=== PATIENT | female | born 1950 | race Caucasian/White ===

== ENCOUNTER → 2023-07-06 | Emergency (ER) | payer OTHER, MEDICARE ==
[~2023-07-06] MED LIST: HYDROCODONE/APAP 10/325 TAB ONE; MORPHINE 4 MG/ML SYR ONE
--- NOTE | 2023-07-06 12:29 | RAD REPORT ---
EXAM DESCRIPTION: RAD - Knee Right 3 View - 07/06/2023 11:56 am CLINICAL HISTORY: Right knee pain status post injury FINDINGS: Mildly to moderately depressed lateral tibial plateau fracture. Osteoporosis Moderate joint effusion No dislocation is seen
--- NOTE | 2023-07-06 14:40 | RAD REPORT ---
EXAM DESCRIPTION: CT - Knee Right Wo Cont - 07/06/2023 1:20 pm CLINICAL HISTORY: Tibial plateau fracture COMPARISON: Knee Right 3 View dated 07/06/2023 TECHNIQUE: Thin cut axial CT imaging of the right knee was performed without IV contrast. Multiplana r reformats were generated and reviewed. All CT scans are performed using dose optimization technique as appropriate and may include automated exposure control or mA/KV adjustment according to patient size. FINDINGS: Mildly depressed fracture involving the peripheral posterior aspect of the lateral tibial plateau, with the depressed fragment measuring 2.5 cm in AP dimension, and 2 cm in transverse dimensi on. Most posteriorly, the fragment is depressed by approximately 4 mm. Mild comminution with small fr agments posteriorly. Mineralization along the medial and lateral menisci, nonspecific. Coarse rounded/ovoid heterogeneous calcifications within the suprapatellar recess. Other areas of mineralization along the gastrocnemius attachment particularly medially. Findings are nonspecific but may relate to sequelae of mineralizat ion in the setting of prior hematoma or synechiae within the joint space, or tears of the muscle shell chments. Possibility of osteochondromatosis within the joint space is considered less likely. Moderate joint effusion. Background up to moderate degenerative changes with marginal spurring. IMPRESSION: Mildly comminuted depressed fracture involving the posterior peripheral aspect of the la teral tibial plateau as described above. Nonspecific soft tissue mineralization as above. Moderate joint effusion.
--- NOTE | 2023-07-06 14:55 | ER ---
Nurse's Notes [facility] Name: Kim Ortiz Age: 72 yrs Sex: Female : 1950 Arrival Date: 07/06/2023 Time: 10:36 Bed 12 Private MD: Diagnosis: Mechanical fall;Tibial plateau fracture Presentation: 07/06 10:53 Chief complaint: Patient states: FALL OFF STEPLADDER LAST PM, TWISTED R KNEE. bp Coronavirus screen: At this time, the client does not indicate any symptoms associated with coronavirus-19. Ebola Screen: No symptoms or risks identified at this time. Initial Sepsis Screen: Does the patient meet any 2 criteria? No. Patient's initial sepsis screen is negative. Does the patient have a suspected source of infection? No. Patient's initial sepsis screen is negative. Risk Assessment: Do you want to hurt yourself or someone else? Patient reports no desire to harm self or others. Onset of symptoms was July 05, 2023 at 20:00. 10:53 Method Of Arrival: Wheelchair bp 10:53 Acuity: PAYAM 3 bp Triage Assessment: 10:53 General: Appears in no apparent distress. uncomfortable, Behavior is calm, cooperative, bp appropriate for age. Pain: Complains of pain in right knee. Historical: - Allergies: 10:50 Iodine; bp 10:50 Demerol; bp 10:50 TETANUS VACCINES AND TOXOID; bp - PMHx: 10:50 Hypertensive disorder; bp - PSHx: 10:50 BACK SURGERY; NECK SURGERY; KNEE SURGERY; bp - Immunization history:: Adult Immunizations up to date. - Social history:: Smoking status: Patient denies any tobacco usage or history of. - Family history:: not pertinent. Screenin:52 Abuse screen: Denies threats or abuse. Nutritional screening: No deficits noted. ap3 Tuberculosis screening: No symptoms or risk factors identified. 14:13 [facility] ED Fall Risk Assessment (Adult) Score/Fall Risk Level 0 - 2 = Low Risk nj1 Oriented to surroundings, Maintained a safe environment, Hourly rounding (assess needs \T\ fall precautionary measures) done. Assessment: 14:00 General: Appears in no apparent distress. comfortable, Behavior is calm, cooperative, nj1 appropriate for age. Pain: Complains of pain in right knee Pain currently is 8 out of 10 on a pain scale. Neuro: Level of Consciousness is awake, alert, obeys commands, Oriented to person, place, time, situation. Cardiovascular: Patient's skin is warm and dry. Respiratory: Airway is patent Respiratory effort is even, unlabored. Musculoskeletal: Swelling present in right knee Reports pain in right knee. Vital Signs: 10:53 BP 112 / 73; Pulse 70; Resp 16; Temp 98.7; Pulse Ox 97% ; bp ED Course: 10:39 Patient arrived in ED. im 10:44 Huber Ruffin MD is Attending Physician. rt 10:53 Arm band placed on. bp 10:54 Triage completed. bp 11:57 Knee Right 3 View XRAY In Process Unspecified. EDMS 12:52 Patient has correct armband on for positive identification. Bed in low position. Call ap3 light in reach. Side rails up X 1. Adult w/ patient. 13:21 Knee Right Wo Cont In Process Unspecified. EDMS 13:32 Karen Brown, RN is Primary Nurse. nj1 14:05 Crutch training done. Knee immobilizer applied on right knee. nj1 14:13 Provided Education on: call light, fall precautions, knee immobilizer, crutches. nj1 14:54 Preston Savage MD is Referral Physician. rt 15:19 No provider procedures requiring assistance completed. Patient did not have IV access cm10 during this emergency room visit. Administered Medications: 11:31 Drug: [place] PO 10 mg-325 mg 1 tabs PO once Route: PO; bp 15:19 Follow up: Response: No adverse reaction cm10 14:49 Drug: morphine IM 4 mg IM once Route: IM; Site: left ventrogluteal; kb3 15:19 Follow up: Response: No adverse reaction cm10 Medication: 15:20 VIS not applicable for this client. cm10 Outcome: 14:55 Discharge ordered by MD. rt 15:19 Discharged to home ambulatory, with crutches, cm10 15:19 Condition: good 15:19 Discharge instructions given to patient, family, Instructed on discharge instructions, follow up and referral plans. medication usage, crutch walking, Demonstrated understanding of instructions, follow-up care, medications, crutch walking, Prescriptions given X 1, 15:20 Patient left the ED. cm10 Signatures: Dispatcher [employer] EDJarad Hernandezian, RN RN bp Michelle Taylor RN RN ap3 Lucie Morrison RN RN kb3 Huber Ruffin MD MD rt Karen Brown RN RN nj1 Korina Robles Clarissa RN RN cm10 Corrections: (The following items were deleted from the chart) 10:53 10:50 Allergies: NSAIDS; bp bp 14:13 14:00 Pain: Complains of pain in right knee nj1 nj1
--- NOTE | 2023-07-06 14:55 | EDPHYS ---
Physician Documentation [facility] Name: Kim Ortiz Age: 72 yrs Sex: Female : 1950 Arrival Date: 07/06/2023 Time: 10:36 Bed 12 Private MD: ED Physician Huber Ruffin HPI: 07/06 16:51 This 72 yrs old Female presents to ER via Wheelchair with complaints of Fall Injury, rt Knee Injury. 16:51 Patient presents to the ED with a fall, injury to the right knee. Patient was on a step rt stool, it collapsed causing her to twist her knee. She has reported pain when she bears weight. Is aching nature reports swelling to the area. This occurred last night. Symptoms have persisted, prompting her to come to the ED for further evaluation. Historical: - Allergies: 10:50 Iodine; bp 10:50 Demerol; bp 10:50 TETANUS VACCINES AND TOXOID; bp - PMHx: 10:50 Hypertensive disorder; bp - PSHx: 10:50 BACK SURGERY; NECK SURGERY; KNEE SURGERY; bp - Immunization history:: Adult Immunizations up to date. - Social history:: Smoking status: Patient denies any tobacco usage or history of. - Family history:: not pertinent. ROS: 16:51 Constitutional: Negative for fever, chills, and weight loss, Cardiovascular: Negative rt for chest pain, palpitations, and edema, Respiratory: Negative for shortness of breath, cough, wheezing, and pleuritic chest pain, Abdomen/GI: Negative for abdominal pain, nausea, vomiting, diarrhea, and constipation, Skin: Negative for injury, rash, and discoloration, Neuro: Negative for headache, weakness, numbness, tingling, and seizure, Psych: Negative for depression, anxiety, suicide ideation, homicidal ideation, and hallucinations, 16:51 MS/extremity: Positive for pain, swelling, Exam: 16:51 Constitutional: This is a well developed, well nourished patient who is awake, alert, rt and in no acute distress. Head/Face: Normocephalic, atraumatic. Chest/axilla: Normal chest wall appearance and motion. Nontender with no deformity. No lesions are appreciated. Cardiovascular: Regular rate and rhythm with a normal S1 and S2. No gallops, murmurs, or rubs. Normal PMI, no JVD. No pulse deficits. Respiratory: Lungs have equal breath sounds bilaterally, clear to auscultation and percussion. No rales, rhonchi or wheezes noted. No increased work of breathing, no retractions or nasal flaring. Abdomen/GI: Soft, non-tender, with normal bowel sounds. No distension or tympany. No guarding or rebound. No evidence of tenderness throughout. Skin: Warm, dry with normal turgor. Normal color with no rashes, no lesions, and no evidence of cellulitis. Neuro: Awake and alert, GCS 15, oriented to person, place, time, and situation. Cranial nerves II-XII grossly intact. Motor strength 5/5 in all extremities. Sensory grossly intact. Cerebellar exam normal. Normal gait. Psych: Awake, alert, with orientation to person, place and time. Behavior, mood, and affect are within normal limits. 16:51 Musculoskeletal/extremity: Swelling, tenderness to the right knee, pulses, motor, sensation intact, skin is intact. Vital Signs: 10:53 BP 112 / 73; Pulse 70; Resp 16; Temp 98.7; Pulse Ox 97% ; bp MDM: 10:48 Patient medically screened. rt 16:56 Differential diagnosis: Fracture, contusion, ligamentous injury. Data reviewed: vital rt signs, nurses notes. Management of patient was discussed with the following: Appetizer Packer: Discussed with orthopedics on-call, recommend CT scan, nonweightbearing status, knee immobilizer and outpatient follow-up. I considered the following discharge prescriptions or medication management in the emergency department Medications were administered in the Emergency Department. See MAR. Independent interpretation of the following test(s) in the Emergency Department X-Ray: My interpretation is Tibial plateau fracture seen on interpretation of x-ray images. Test considered but Not performed: CT: Denies head trauma, CT scan of the head not decayed. Care significantly affected by the following chronic conditions: Hypertension. Counseling: I had a detailed discussion with the patient and/or guardian regarding the historical points, exam findings, and any diagnostic results supporting the discharge/admit diagnosis, radiology results, the need for outpatient follow up, to return to the emergency department if symptoms worsen or persist or if there are any questions or concerns that arise at home. 07/06 10:55 Order name: Knee Right 3 View XRAY; Complete Time: 12:34 rt 07/06 13:13 Order name: Knee Right Wo Cont; Complete Time: 14:47 EDMS 07/06 13:10 Order name: Knee Immobilizer; Complete Time: 14:08 rt Administered Medications: 11:31 Drug: [place] PO 10 mg-325 mg 1 tabs PO once Route: PO; bp 15:19 Follow up: Response: No adverse reaction cm10 14:49 Drug: morphine IM 4 mg IM once Route: IM; Site: left ventrogluteal; kb3 15:19 Follow up: Response: No adverse reaction cm10 Disposition Summary: 07/06/23 14:55 Discharge Ordered Notes: Location: Home rt Problem: new rt Symptoms: have improved rt Condition: Stable rt Diagnosis - Mechanical fall rt - Tibial plateau fracture rt Followup: rt - With: Preston Savage MD - When: 5 - 6 days - Reason: Discharge Instructions: - Discharge Summary Sheet rt - How to Use a Knee Brace rt - Nondisplaced Tibial Plateau Fracture rt - Acute Knee Pain, Adult rt Forms: - Medication Reconciliation Form rt - Thank You Letter rt - Antibiotic Education rt - Prescription Opioid Use rt - Patient Portal Instructions rt - Leadership Thank You Letter rt Prescriptions: - acetaminophen-codeine 300-30 mg Oral tablet - take 1 tablet ORAL route every 6 hours; 18 tablet; Refills: 0, Product rt Selection Permitted Signatures: Dispatcher [employer] EDIhsan Hernandez, RN RN bp Lucie Morrison RN RN kb3 Huber Ruffin MD MD rt Mariajose Loera RN cm10 Corrections: (The following items were deleted from the chart) 10:53 10:50 Allergies: NSAIDS; bp bp 13:11 13:10 CT RIGHT KNEE WO CONTRAST ordered. EDMS EDMS
[2023-07-06 17:10] VITALS: BP 112/73; TEMP 98.7; O2SAT 97
== END ==
LOC: ER 10:36
DX: S82.141A Displaced bicondylar fracture of right tibia, initial encounter for closed fracture (principal); W18.30XA Fall on same level, unspecified, initial encounter; Z88.5 Allergy status to narcotic agent; Z88.7 Allergy status to serum and vaccine; Z91.048 Other nonmedicinal substance allergy status
CPT/HCPCS: 73700

== ENCOUNTER 2023-07-10 08:58 | Observation (INO) | payer OTHER, MEDICARE ==
[2023-07-09 15:54] LABS: Absolute Lymphocytes (CBC) 1.3 K/uL (0.7-4.9); Hematocrit 39.2 % (36.0-45.0); Lymphocytes % 18.8 % (15.3-44.8); MCV 92.5 fL (80-100); MPV 8.3 fL (7.6-11.3); Platelets 251 thou/uL (152-406); RBC Red Blood Cell Count 4.24 M/uL (3.86-4.86)
[2023-07-09 16:15] LABS: Potassium 4.1 mEq/L (3.5-5.1)
[2023-07-10] MEDS ORDERED: CEFAZOLIN SODIUM 1 GM/VIAL ONE (09:21)
[2023-07-10] MEDS ORDERED: Ringers Lactate 1,000 ML IV ONE (09:22)
[2023-07-10] MEDS ORDERED: FENTANYL CITR 100 MCG/2 ML ONE ×2 (10:07→13:38)
[2023-07-10] MEDS ORDERED: MIDAZOLAM HCL 2 MG/2 ML INJ ONE (10:07)
[2023-07-10] MEDS ORDERED: dexAMETHasone 10 MG/ML VIAL ONE ×2 (10:07→10:54)
[2023-07-10] MEDS ORDERED: LIDOCAINE 1% MPF 5 ML VIAL ONE (10:07)
[2023-07-10] MEDS ORDERED: EPINEPHRINE 1 MG/ML VIAL ONE (10:07)
[2023-07-10] MEDS ORDERED: ONDANSETRON 4 MG/2 ML VIAL ONE (10:54)
[2023-07-10] MEDS ORDERED: LIDOCAINE 2% MPF 5 ML VIAL ONE (10:54)
[2023-07-10] MEDS ORDERED: propofoL 200 MG/20 ML VIAL IV ONE (10:54)
[2023-07-10] MEDS ORDERED: NS 0.9% VIAL 10 ML ONE (11:17)
[2023-07-10] MEDS ORDERED: Phenylephrine HCl 10 MG/ML 1 ML VIAL ONE (11:17)
--- NOTE | 2023-07-10 13:01 | P.BOP ---
Preoperative diagnosis: right tibial plateau fracture Postoperative diagnosis: same Primary procedure: right tibial plateau ORIF Estimated blood loss: 30 ccs Anesthesia: General Complications: None Transferred to: Recovery Room Condition: Good
[2023-07-10] MEDS ORDERED: DOCUSATE NA 100 MG CAP PO PRN (13:21)
[2023-07-10] MEDS ORDERED: ONDANSETRON 4 MG/2 ML VIAL IV PRN (13:21)
--- NOTE | 2023-07-10 14:27 | RAD REPORT ---
EXAM DESCRIPTION: RAD - Fluoroscopy <1 Hour - 07/10/2023 2:12 pm CLINICAL HISTORY: Open reduction internal fixation tibial fracture FINDINGS: Thirty-two intraoperative fluoroscopic spot images obtained. Fluoroscopy time 0.6 centimeters Surgery performed by Dr. Savage Sideplate and screws affix a tibial fracture
[2023-07-10 14:55] VITALS: BMI 20.7
--- NOTE | 2023-07-10 14:57 | OP ---
Date of Procedure: 07/10/2023 Surgeon: Preston Savage MD Preoperative Diagnosis: Depressed lateral tibial plateau fracture on the right. Postoperative Diagnosis: Depressed lateral tibial plateau fracture on the right. Procedures: Right tibial plateau open reduction and internal fixation with allograft bone grafting u sing the Biomet proximal tibia set and placement of drain. Also included is repair of lateral menisc us, which was done open. Estimated Fluid Loss: 30 cc. Complications: There were no complications. Indications For Operation: Ms. Ortiz is a 72-year-old female who unfortunately fell, injuring her right lower extremity. She had immediate pain and was sent to the emergency department where x-rays and CT scan demonstrate a lateral tibial plateau fracture with significant depression of the lateral tibial plateau fragmentation also present with comminution. Risks, benefits, and alternatives of dif ferent methods of treating this was discussed with the patient. She states she understands things as presented and wishes to proceed. Description Of Procedure: Patient was given a block in the holding area. She was then taken back to the operating room where a well-padded tourniquet was placed on superior right thigh. Right lower e xtremity was then prepped in usual sterile fashion with the exception of not using iodine as she has an allergy to iodine listed, but to use appropriate prepping and draping. Following this, the lower leg was then elevated, but not exsanguinated and the tourniquet was raised. An incision was made whi ch overlies the midpoint between Gerdy tubercle and the joint line, carrying on anteriorly until it b ecomes more of a longitudinal incision down near the crest of the tibia. This was taken down careful ly through skin only. Meticulous hemostasis being maintained using Bovie electrocautery. Following this, the fascia of the tibialis anterior was encountered. There was a small cuff of it remaining. It was then gently elevated off the lateral tibia and tibial plateau. C-arm was brought in to ensure correct placement of a working window. A working window was then performed using a drill followed b y osteotome. The use of a tamp and significant C-arm use was then used to press the depressed fragme nt up until reestablishing the surface of the tibial plateau. After this, decision was made to make an incision to access position intra-articularly. There was a small amount of blood, which was liber ated and cleaned. After this, the meniscus was noted to be slightly torn from its capsular attachmen t. This was gently made a little bit larger so we would be able to see under the meniscus and the vi sualized portions appeared to be at appropriate level. After this, bone graft was then packed behind where the punch had been in fairly snug fashion. The meniscus was then tied back to the capsule usi ng Ethibond sutures. This was followed by closure of the capsule itself using heavy Vicryl sutures. The plate was then selected and placed in standard fashion, care being taken not to penetrate too fa r the contralateral cortex. After this was examined on both AP and lateral and appeared the screws w ere appropriately positioned, the wound was then irrigated and Vicryl was used to gently tack the inf erior portion of the tibialis anterior back. However, no attempt was made to close it tightly, this was loose enough to ensure that a passage of a medium Hemovac drain through the skin distally underne ath the sutures and in the wound bed can be accomplished. After this, it was again irrigated and the skin was closed using interrupted Vicryl sutures followed by nikole. The patient was then placed i n a well-padded sterile dressing and taken to recovery room. /SARI Voice ID: [id number] Report ID: [id number]
[2023-07-10] MEDS: HYDROCODONE/APAP 7.5/325 MG TAB PO PRN ×2 (16:08→22:40)
[2023-07-10] MEDS: CEFAZOLIN 1 GM in NA CHLORIDE 0.9% 50 ML IVPB SCH (16:10)
--- NOTE | 2023-07-10 16:35 | P.CNS ---
Date of Consult: 07/10/23 Reason for Consult: medical management Requesting Physician: Preston Savage Chief Complaint: fall, now s/o R knee surgery History of Present Illness: 72yo F, PMH: HTN, hypothyroid, chronic pain, GERD, hiatal hernia Fell a few days ago from step stool leading to right tibial plateau fracture now s/p right tibial plateau ORIF. She states she has been in her usual state of health until this event. She is currently a few hours post-op and doing ok. She plans to go home tomorrow where her son will be able to help her. Currently without nausea/vomiting and pain is tolerable. Allergies iodine Allergy (Verified 07/10/23 10:14) Hives aspirin Adverse Reaction (Verified 07/10/23 10:14) Nausea/Vomiting meperidine [From Demerol] Adverse Reaction (Verified 07/10/23 10:14) Nausea/Vomiting Home medications list reviewed: Yes Home Medications: Famotidine 20 mg PO BID 07/09/23 Levothyroxine Sodium 50 mcg PO DAILY 07/09/23 Lisinopril [Zestril] 30 mg PO DAILY 07/09/23 Oxycodone HCl/Acetaminophen [Oxycodone-Acetaminophen 10-325] 1 tab PO QID PRN 07/09/23 Sertraline [Zoloft] 100 mg PO BEDTIME 07/09/23 Temazepam 30 mg PO BEDTIME 07/09/23 Tizanidine [Zanaflex] 4 mg PO BID PRN 07/09/23 Trazodone HCl 100 mg PO BEDTIME 07/09/23 - Past Medical/Surgical History Diabetic: No -: knee surg - developed pul embolus. [employer] -: HTN -: GERD - hiatal hernia -: h/o pancreatitis x1 -: h/o diverticulitis, colon resection -: colon resection -: knee surg -: toe surg -: lower back -: cervical fusion -: carpal tunel left hand -: hysterectomy - Family History Father Notes: "stomach problems" Mother Notes: lung cancer - Social History Smoking Status: Never smoker Alcohol use: Yes CD- Drugs: No Caffeine use: Yes Place of Residence: Home Review of Systems 10-point ROS is otherwise unremarkable Physical Examination Temp Pulse Resp BP Pulse Ox 97.6 F 86 17 133/56 L 98 07/10/23 15:09 07/10/23 15:09 07/10/23 16:08 07/10/23 15:09 07/10/23 16:08 General: Alert, In no apparent distress, Oriented x3 HEENT: EOMI, Sclerae nonicteric Neck: Supple, No LAD Respiratory: Clear to auscultation bilaterally, Normal air movement Cardiovascular: No edema, Regular rate/rhythm Gastrointestinal: Soft and benign, Non-distended, No tenderness Musculoskeletal: Other (right leg in CPROM, surgical dressing c/d/i) Integumentary: No rashes, No breakdown Neurological: Normal speech, Normal affect Physician Review Additional Text: Problem List R tibial plateau fracture, now s/p ORIF chronic pain HTN hypothyroid GERD insomnia patient sees pain clinic for chronic pain medication, and will be managed by her pain doctor on discharge continue home regimen with breakthrough medication as need confirm home medications, restart anti-hypertensives as appropriate - pt states she took her medications this morning restart home anxiolytics / insomnia medication restart home thyroid medication check labs in AM Dispo: per ortho; anticipate dc home tomorrow Time Spent Managing Pts care (In Minutes): 60
[2023-07-10] MEDS ORDERED: TIZANIDINE 4 MG TABLET PO PRN (16:45)
[2023-07-10] MEDS ORDERED: TEMAZEPAM 15 MG CAP PO PRN (16:47)
[2023-07-10] MEDS: FAMOTIDINE 20 MG TAB PO SCH (17:14)
[2023-07-10] MEDS ORDERED: SERTRALINE HCL 100 MG TAB PO SCH (21:00)
[2023-07-10] MEDS ORDERED: TRAZODONE 50 MG TABLET PO SCH (21:00)
[2023-07-10 21:41] VITALS: O2SAT 96
[2023-07-11] MEDS: CEFAZOLIN 1 GM in NA CHLORIDE 0.9% 50 ML IVPB SCH ×2 (00:18→09:56)
[2023-07-11 04:50] LABS: Hematocrit 35.8 % (36.0-45.0)
[2023-07-11] MEDS: LEVOTHYROXINE SOD 0.05 MG TABLET PO SCH ×2 (05:34→09:00)
[2023-07-11] MEDS: HYDROCODONE/APAP 7.5/325 MG TAB PO PRN ×2 (06:19→10:39)
[2023-07-11 07:53] VITALS: BP 132/65; TEMP 98.5
--- NOTE | 2023-07-11 09:27 | P.PN ---
Date of Service: 07/11/23 Subjective: Doing okay No new / worsening problems pain is well managed ROS: 10 point ROS as noted above, otherwise negative Physical Exam: GEN: Alert, oriented, NAD HEENT: Normal conjunctiva, sclera anicteric, CV: Regular rate and rhythm, no edema Pulm: Nonlabored respirations on room air, clear bilaterally ABD: soft, nontender, nondistended MSK: right leg in with dressing in place, able to flex knee with mild discomfort Neuro: Normal speech, normal affect Problem List: R tibial plateau fracture, now s/p ORIF (07/10) chronic pain Hypertension Hypothyroidism GERD Insomnia R tibial plateau fracture, now s/p ORIF with Dr. Savage (07/10) continue home pain regimen with breakthrough medication as need Patient to follow up with her pain doctor on discharge for continued chronic pain meds. Patient made aware and stated she would make an appointment Dr. Savage spoke with her pain doctor - recommended taking her mediation q4h instead of q6h Pain well managed while hospitalized continue home anti-hypertensives as appropriate continue home anxiolytics / insomnia medication continue home thyroid medication continue PT hgb stable VTE: SCD Code: Full Dispo: per ortho; anticipate discharge home today cleared from medical standpoint for discharge
[2023-07-11] MEDS: FAMOTIDINE 20 MG TAB PO SCH (09:56)
--- NOTE | 2023-07-13 15:13 | EKG ---
Test Date: 2023-07-09 Test Time: 16:29:59 Trauma Counsellor: IONA MEASUREMENT RESULTS: Intervals: Rate: 68 OH: 128 QRSD: 82 QT: 400 QTc: 425 Reliance: P: 85 OH: 128 QRS: 90 T: 65 INTERPRETIVE STATEMENTS: Normal sinus rhythm Rightward axis Borderline ECG No previous ECG available for comparison Electronically Signed On 07-13-23 15:03:19 POWDER MONKEY by Milton Lynn
== END 2023-07-11 11:00 | disposition home or self-care (01) ==
LOC: OR 08:58 → 2ND 12:55
PROVIDERS: ADMIT Orthopaedic Surgery; ATTEND Orthopaedic Surgery
PROC: 0QUG4KZ Supplement Right Tibia with Nonautologous Tissue Substitute, Percutaneous Endoscopic Approach (ICD-10-PCS; 2023-07-10)
PROC: 0SQC0ZZ Repair Right Knee Joint, Open Approach (ICD-10-PCS; 2023-07-10)
PROC: 0QSG04Z Reposition Right Tibia with Internal Fixation Device, Open Approach (ICD-10-PCS; principal; 2023-07-10 11:00)
DX: S82.141A Displaced bicondylar fracture of right tibia, initial encounter for closed fracture (principal); S83.281A Other tear of lateral meniscus, current injury, right knee, initial encounter; W19.XXXA Unspecified fall, initial encounter; Y93.9 Activity, unspecified; Y92.9 Unspecified place or not applicable
CPT/HCPCS: 27535; 29892; 27403; 93005; 85025; 80048; 36415 ×2; 85018; 85014; 97110; 97116; 97139; 97161; 97530; 27899; A4216; J2704; J2001 ×2; J2371; J2250; J3010 ×2; J1100 ×2; J0171; J2405; G0378 ×3; J7120; J0690 ×4; G0379; 76000